=== PATIENT | female | born 1955 | race African-American/Black ===

== ENCOUNTER 2024-02-23 06:26 | Day surgery (SDC) | payer OTHER, SELFPAY ==
[2024-02-23 12:43] VITALS: BMI 31.6
[2024-02-23 12:54] VITALS: BP 97/68; BMI 31.6
[2024-02-23 13:06] LABS: Glucose - Point of Care 114 mg/dl (70-99)
[2024-02-23 14:08] VITALS: BP 111/48
[2024-02-23 14:15] VITALS: BP 125/67
== END 2024-02-23 14:58 | disposition home or self-care (01) ==
LOC: SDS 06:26
PROVIDERS: ATTENDING PHYSICIAN Internal Medicine Gastroenterology; FAMILY PHYSICIAN Internal Medicine
DX: K86.9 Disease of pancreas, unspecified (principal); K20.90 Esophagitis, unspecified without bleeding; K31.89 Other diseases of stomach and duodenum
CPT/HCPCS: 43237; 82962